=== PATIENT | male | born 1995 | race Caucasian/White ===

== ENCOUNTER 2016-03-20 04:26 | Emergency (ER) | payer OTHER ==
[~2016-03-20] VITALS: Ht 177.8 cm; Wt 91.0 kg
[2016-03-20 04:33] VITALS: Ht 177.8 cm; Wt 91.0 kg
[2016-03-20] MEDS ORDERED: CEPH-443 PO (05:11)
[2016-03-20] MEDS ORDERED: BACTDS PO (05:11)
--- NOTE | 2016-03-20 05:17 | ERD ---
ER Documentation Chief Complaint Date/Time DATE: 03/20/16 TIME: 05:14 Chief Complaint left breast pain, left arm pain HPI 20-year-old male with history of IV drug abuse with heroin comes to the emergency room with left arm pain and left breast pain. Patient states that he injected into his left antecubital 2 days ago and started to have redness in the left upper arm, as well as swelling and tenderness. He denies fever, chills , chest pain or shortness of breath with this. He also noticed a lump on his left breast for the past 2 days, it was initially painful and now is improving, no drastic change in size. ROS All systems reviewed and are negative except as per history of present illness. Medications Home Meds Active Scripts Sulfamethoxazole-Trimethoprim* (Bactrim* DS) 800-160 Mg Tab, 1 TAB PO BID for 7 Days, TAB Prov:CHATO FARMER PA-C 03/20/16 Cephalexin* (Keflex*) 500 Mg Capsule, 500 MG PO QID for 7 Days, CAP Prov:CHATO FARMER PA-C 03/20/16 Allergies Allergies: Coded Allergies: No Known Allergy (Unverified , 03/20/16) PMhx/Soc History of Surgery: No Anesthesia Reaction: No Hx Neurological Disorder: No Hx Respiratory Disorders: No Hx Cardiac Disorders: Yes Hx Psychiatric Problems: No Hx Miscellaneous Medical Probl: Yes (USES ACUTANE FOR ACNE.) Hx Alcohol Use: Yes (OCCASIONALLY) Hx Substance Use: Yes (IV COCAINE) Hx Tobacco Use: Yes Smoking Status: Current every day smoker Physical Exam Vitals Vital Signs Date Time Temp Pulse Resp B/P Pulse Ox O2 Delivery O2 Flow Rate FiO2 03/20/16 04:33 98.3 85 20 142/75 100 Physical Exam General: Well-developed, well-nourished. The patient appears in no acute distress. HEENT: Head is normocephalic, atraumatic. No scleral icterus. Neck: Supple. Nontender. Lungs: Clear to auscultation. Normal air movement. Chest: Mobile nontender structure approximately 1 cm appreciated at the 12 o' clock position right underneath the nipple on the left side. Heart: Regular rate and rhythm. S1 and S2 are normal. No murmurs, gallops, or rubs. Abdomen: Soft, nontender, nondistended. Bowel sounds are normoactive. Extremities: Left upper arm has erythema approximately 5 cm it is very scant in faint, there is tenderness to palpation at the proximal aspect, antecubital is unremarkable. There is no induration or fluctuance. No lymphedema noted, radial pulses 2+ bilaterally.. Neurologic: Alert and oriented 3. No focal deficits. Skin: Normal turgor. No rash or lesions. Results 24 hrs Current Medications Medications (Trade) Dose Ordered Sig/Joao Route PRN Reason Start Time Stop Time Status Last Admin Dose Admin Cephalexin (Keflex) 500 mg ONCE ONCE PO 03/20/16 05:30 03/20/16 05:31 03/20/16 05:10 Trimethoprim/ Sulfamethoxazole (Bactrim (Ds)) 1 tab ONCE ONCE PO 03/20/16 05:30 03/20/16 05:31 03/20/16 05:10 Procedures/MDM 20-year-old male comes in with early abscess versus cellulitis of the left arm from likely IV drug abuse. Patient states that he used the same needle twice, states he is up-to-date with his tetanus. He will be treated for abscess versus cellulitis, there is no lymphedema, no limb threatening process or lymphangitis. He was given his first dose of Keflex and Bactrim in the emergency room. Finding on left breast is a very small area that is mobile and nontender. This is likely a cystic structure or duct structure. There are no signs of infection, I have advised patient that if the area gets becomes tender again or grows in size at secondary evaluation may be needed, possibly further evaluation with ultrasound imaging. Departure Diagnosis: Primary Impression: IVDU (intravenous drug user) Additional Impression: Cellulitis Condition: Good Patient Instructions: Abscess, Antiobiotic Treatment Only Additional Instructions: Wound check in 2 days. CHATO FARMER PA-C Mar 20, 2016 05:17
[2016-03-20 05:27] VITALS: BP 146/65; PULSE 86; RESP 16; TEMP 98.6
[2016-03-20] MEDS ORDERED: TRIMETHOPRIM/SULFAMETHOX (DS) TAB PO ONE (05:30)
[2016-03-20] MEDS ORDERED: CEPHALEXIN 500 MG CAP PO ONE (05:30)
[2016-03-23] MEDS ORDERED: CARI350T PO (14:31)
== END 2016-03-20 05:27 | disposition home or self-care (01) ==
LOC: FTE 04:26
DX: F19.20 Other psychoactive substance dependence, uncomplicated (principal); L03.114 Cellulitis of left upper limb; F17.210 Nicotine dependence, cigarettes, uncomplicated
CPT/HCPCS: Z7610 ×2; 99284

== ENCOUNTER 2016-03-23 11:55 | Emergency (ER) | END 2016-03-23 14:45 | disposition home or self-care (01) | DX: G47.00 Insomnia, unspecified (principal); M54.9 Dorsalgia, unspecified; F17.210 Nicotine dependence, cigarettes, uncomplicated ==

== ENCOUNTER 2016-08-17 21:01 | Emergency (ER) | payer OTHER ==
[~2016-08-17] VITALS: Ht 182.9 cm; Wt 80.0 kg
[~2016-08-17 21:01] MED LIST: BACTDS PO; CARI350T PO; CEPH-443 PO
[2016-08-17 21:11] VITALS: Ht 182.9 cm; Wt 80.0 kg
[2016-08-17] MEDS ORDERED: SOD CHLORIDE 0.9% 1,000 ML IV STA (22:14)
[2016-08-17] MEDS ORDERED: ONDANSETRON 4 MG INJ IV STA (22:14)
[2016-08-17] MEDS ORDERED: NALOXONE (0.4 MG/ML) INJ IV STA (22:14)
[2016-08-17 23:01] LABS: ADD SCAN DIFF NO
[2016-08-17 23:05] LABS: BASOPHILS % 0.2 % (0.0-2.0); EOSINOPHILS % 0.4 % (0.0-7.0); HEMATOCRIT 41.8 % (42.0-52.0); HEMOGLOBIN 15.2 g/dl (14.0-18.0); LYMPHOCYTES # 1.2 10^3/ul (0.8-2.9); LYMPHOCYTES % 11.2 % (15.0-51.0); MEAN CORPUSCULAR HEMOGLOBIN 33.2 pg (29.0-33.0); MEAN CORPUSCULAR HGB CONC 36.4 g/dl (32.0-37.0); MEAN CORPUSCULAR VOLUME 91.3 fl (82.0-101.0); MONOCYTE # 0.6 10^3/ul (0.3-0.9); NEUTROPHIL # 8.7 10^3/ul (1.6-7.5); NEUTROPHILS % 81.9 % (39.0-77.0); PLATELET COUNT 204 10^3/UL (140-415); RED BLOOD COUNT 4.58 10^6/ul (4.70-6.10); RED CELL DISTRIBUTION WIDTH 11.7 % (11.5-14.5); WHITE BLOOD COUNT 10.6 10^3/ul (4.8-10.8)
--- NOTE | 2016-08-17 23:09 | RADRPT ---
PROCEDURE: XR Chest AP portable CLINICAL INDICATION: A L O C TECHNIQUE: An AP portable radiograph of the chest was submitted. COMPARISON: None. FINDINGS: Support Hardware: None Cardiovascular: The cardiovascular silhouette appears unremarkable. Lung Goldberg: The lung goldberg appear clear with no nodule, alveolar infiltrate, or interstitial promi nence evident. Pleural Spaces: No pneumothorax or pleural effusion is identified. Osseous Structures: There is a mild S-shaped scoliotic curve to the thoracic spine. Soft Tissues: The soft tissues appear unremarkable. IMPRESSION: Unremarkable portable chest. Physician Selina Date Time Electronically viewed and signed by Physician Selina on 08/17/2016 23:09 /
[2016-08-17 23:25] LABS: ALANINE AMINOTRANSFERASE 30 IU/L (13-69); ALBUMIN 4.9 g/dl (3.3-4.9); ALBUMIN/GLOBULIN RATIO 1.96; ALKALINE PHOSPHATASE 74 IU/L (42-121); ANION GAP 12 (8-16); ASPARTATE AMINO TRANSFERASE 22 IU/L (15-46); BILIRUBIN,INDIRECT 0.5 mg/dl (0-1.1); BILIRUBIN,TOTAL 0.5 mg/dl (0.2-1.3); BLOOD UREA NITROGEN 17 mg/dl (7-20); CALCIUM 9.2 mg/dl (8.4-10.2); CARBON DIOXIDE 30 mmol/L (21-31); CHLORIDE 100 mmol/L (97-110); CREATININE 1.04 mg/dl (0.61-1.24); GLUCOSE 105 mg/dl (70-220); POTASSIUM 3.6 mmol/L (3.5-5.1); SODIUM 138 mmol/L (135-144); TOTAL PROTEIN 7.4 g/dl (6.1-8.1)
[2016-08-17 23:40] LABS: ACETAMINOPHEN < 10.0 ug/ml (10.0-30.0); ETHANOL < 10.0 mg/dl; SALICYLATE < 1.0 mg/dl (5.0-30.0); TROPONIN-I < 0.012 ng/ml (0.00-0.12)
[2016-08-18] MEDS ORDERED: ISOT40CA4 PO (00:40)
[2016-08-18 01:32] LABS: ADD UMIC NO; UR ASCORBIC ACID 40 mg/dL (NEGATIVE); UR BILIRUBIN (Dip) NEGATIVE (NEGATIVE); UR BLOOD (Dip) NEGATIVE (NEGATIVE); UR CLARITY SLIGHTLY CLOUDY (CLEAR); UR COLOR YELLOW (YELLOW); UR GLUCOSE (Dip) NEGATIVE (NEGATIVE); UR KETONES (Dip) NEGATIVE (NEGATIVE); UR LEUKOCYTE ESTERASE (Dip) NEGATIVE Leu/ul (NEGATIVE); UR MUCUS MANY /HPF (NONE SEEN); UR NITRITE (Dip) NEGATIVE (NEGATIVE); UR RBC 0 /HPF (0-5); UR SPECIFIC GRAVITY (Dip) 1.016 (1.003-1.030); UR SQUAMOUS EPITHELIAL CELL FEW /HPF (FEW); UR TOTAL PROTEIN (Dip) NEGATIVE (NEGATIVE); UR UROBILINOGEN (Dip) NEGATIVE (NEGATIVE)
[2016-08-18 01:45] LABS: BARBITURATES Negative (NEGATIVE); BENZODIAZEPINES Negative (NEGATIVE); CANNABINOIDS Negative (NEGATIVE); COCAINE Negative (NEGATIVE); OPIATES Positive (NEGATIVE)
--- NOTE | 2016-08-18 02:07 | ERD ---
ER Documentation Chief Complaint Date/Time DATE: 08/18/16 TIME: 02:06 Chief Complaint Per EMS pt used heroin brother found down and started CPR HPI 21-year-old male who per EMS was using heroin he was found down by his brother who initiated CPR. Paramedics gave Narcan with resolution of symptoms. Patient denies suicidal homicidal ideation. Denies any other current complaints ROS All systems reviewed and are negative except as per history of present illness. Medications Home Meds Reported Medications Isotretinoin (Claravis) 40 Mg Capsule, 40 MG PO DAILY, CAP 08/18/16 Discontinued Scripts Carisoprodol* (Soma*) 350 Mg Tablet, 350 MG PO TID Y for MUSCLE SPASMS, #15 TAB Prov:PASILADEL MEEHAN 03/23/16 Sulfamethoxazole-Trimethoprim* (Bactrim* DS) 800-160 Mg Tab, 1 TAB PO BID for 7 Days, TAB Prov:CHATO FARMER PA-C 03/20/16 Cephalexin* (Keflex*) 500 Mg Capsule, 500 MG PO QID for 7 Days, CAP Prov:CHATO FARMER PA-C 03/20/16 Allergies Allergies: Coded Allergies: No Known Allergy (Unverified , 03/20/16) PMhx/Soc Medical and Surgical Hx: pt denies Medical Hx, pt denies Surgical Hx History of Surgery: No Anesthesia Reaction: No Hx Neurological Disorder: No Hx Respiratory Disorders: No Hx Cardiac Disorders: Yes Hx Psychiatric Problems: No Hx Miscellaneous Medical Probl: Yes (USES ACUTANE FOR ACNE.) Hx Alcohol Use: Yes Hx Substance Use: Yes (heroin) Hx Tobacco Use: No Smoking Status: Never smoker Physical Exam Vitals Vital Signs Date Time Temp Pulse Resp B/P Pulse Ox O2 Delivery O2 Flow Rate FiO2 08/17/16 22:10 95 16 135/85 99 Room Air 08/17/16 21:11 97.7 104 26 142/91 100 Physical Exam Const: [] Head: Atraumatic Eyes: Normal Conjunctiva ENT: Normal External Ears, Nose and Mouth. Neck: Full range of motion..~ No meningismus. Resp: Clear to auscultation bilaterally Cardio: Regular rate and rhythm, no murmurs Abd: Soft, non tender, non distended. Normal bowel sounds Skin: No petechiae or rashes Back: No midline or flank tenderness Ext: No cyanosis, or edema Neur: Awake and alert Psych: Normal Mood and Affect Result Diagram: 08/17/16222908/17/162229 Results 24 hrs Laboratory Tests Test 08/17/16 22:30 08/18/16 00:12 White Blood Count 10.610^3/ul Red Blood Count 4.5810^6/ul Hemoglobin 15.2g/dl Hematocrit 41.8% Mean Corpuscular Volume 91.3fl Mean Corpuscular Hemoglobin 33.2pg Mean Corpuscular Hemoglobin Concent 36.4g/dl Red Cell Distribution Width 11.7% Platelet Count 55164^3/UL Mean Platelet Volume 11.0fl Neutrophils % 81.9% Lymphocytes % 11.2% Monocytes % 6.0% Eosinophils % 0.4% Basophils % 0.2% Nucleated Red Blood Cells % 0.0/100WBC Neutrophils # 8.710^3/ul Lymphocytes # 1.210^3/ul Monocytes # 0.610^3/ul Eosinophils # 0.010^3/ul Basophils # 0.010^3/ul Nucleated Red Blood Cells # 0.010^3/ul Sodium Level 138mmol/L Potassium Level 3.6mmol/L Chloride Level 100mmol/L Carbon Dioxide Level 30mmol/L Anion Gap 12 Blood Urea Nitrogen 17mg/dl Creatinine 1.04mg/dl Glucose Level 105mg/dl Calcium Level 9.2mg/dl Total Bilirubin 0.5mg/dl Direct Bilirubin 0.00mg/dl Indirect Bilirubin 0.5mg/dl Aspartate Amino Transf (AST/SGOT) 22IU/L Alanine Aminotransferase (ALT/SGPT) 30IU/L Alkaline Phosphatase 74IU/L Troponin I < 0.012ng/ml Total Protein 7.4g/dl Albumin 4.9g/dl Globulin 2.50g/dl Albumin/Globulin Ratio 1.96 Salicylates Level < 1.0mg/dl Acetaminophen Level < 10.0ug/ml Ethyl Alcohol Level < 10.0mg/dl Urine Color YELLOW Urine Clarity SLIGHTLY CLOUDY Urine pH 5.0 Urine Specific [place] 1.016 Urine Ketones NEGATIVEmg/dL Urine Nitrite NEGATIVEmg/dL Urine Bilirubin NEGATIVEmg/dL Urine Urobilinogen NEGATIVEmg/dL Urine Leukocyte Esterase NEGATIVELeu/ul Urine Microscopic RBC 0/HPF Urine Microscopic WBC 8/HPF Urine Squamous Epithelial Cells FEW/HPF Urine Hyaline Casts FEW/HPF Urine Granular Casts FEW/HPF Urine Mucus MANY/HPF Urine Hemoglobin NEGATIVEmg/dL Urine Glucose NEGATIVEmg/dL Urine Total Protein NEGATIVEmg/dl Urine Opiates Screen Positive Urine Barbiturates Negative Urine Amphetamines Screen Negative Urine Benzodiazepines Screen Negative Urine Cocaine Screen Negative Urine Cannabinoids Negative Current Medications Medications (Trade) Dose Ordered Sig/Joao Route PRN Reason Start Time Stop Time Status Last Admin Dose Admin Sodium Chloride (NS) 1,000 ml @ 1,000 mls/hr Q1H STAT IV 08/17/16 22:14 08/17/16 23:13 DC 08/17/16 23:02 Ondansetron HCl (Zofran Inj) 4 mg ONCE STAT IV 08/17/16 22:14 08/17/16 22:16 DC 08/17/16 23:02 Naloxone HCl (Narcan) 0.4 mg ONCE STAT IV 08/17/16 22:14 08/17/16 22:16 DC 08/17/16 23:02 Procedures/MDM EKG: Rate/Rhythm: Normal Sinus Rhythm QRS, ST, T-waves: No changes consistent w/ acute ischemia Impression: No evidence of ischemia or arrhythmia Chest X-ray 1V Interpreted by me: Soft Tissue: No acute abnormalities Bones: No acute abnormalities Mediastinum/Cardiac Silhouette/Lungs: No acute abnormalities Medical decision-making: Patient with accidental overdose. Treated here discharge with parents. Advised to stop using heroin. Given outpatient treatment options. Departure Diagnosis: Primary Impression: Accidental overdose Encounter type: initial encounter Qualified Code: T50.901A - Accidental overdose, initial encounter Condition: Stable Patient Instructions: Overdose, Accidental (Adult) INA FROST Aug 18, 2016 02:07
[2016-08-18 02:15] VITALS: BP 123/74; PULSE 85; RESP 18
== END 2016-08-18 02:17 | disposition home or self-care (01) ==
LOC: FTE 21:01 → E/R 08-18 02:17
DX: T40.1X1A Poisoning by heroin, accidental (unintentional), initial encounter (principal)
CPT/HCPCS: 36415; 71010; 80053; 80306; 80307; 81001; 84484; 85025; 96374; 96375; J2310; J2405; J7030; Z7502; 81003

== ENCOUNTER 2017-08-26 19:33 | Emergency (ER) | END 2017-08-26 23:09 | disposition home or self-care (01) ==

== ENCOUNTER 2017-09-13 05:04 | Emergency (ER) | END 2017-09-13 06:21 | disposition home or self-care (01) ==

== ENCOUNTER 2017-09-29 09:06 | Emergency (ER) | END 2017-09-29 11:28 | disposition home or self-care (01) ==